=== PATIENT | female | born 1940 | race Caucasian/White ===

== ENCOUNTER → 2024-04-29 | Outpatient (CLI) | payer MEDICARE, BC, SELFPAY ==
[2024-04-29 13:39] LABS: Collection Type, Urine Clean Catch
[2024-04-29 14:53] LABS: Amorphous Crystals,Urine Present (Absent); Bacteria,Urine Rare; Bilirubin,Urine Negative (Negative); Blood,Urine Negative (Negative); Color,Urine Yellow (Lt Yel-Yel); Glucose, Urine Negative (Negative); Ketones,Urine Negative (Negative); Leukocyte Esterase,Urine Negative (Negative); Nitrite,Urine Negative (Negative); Protein,Urine Trace (Neg - Trace); RBC,Urine 2 /hpf (0-3); Specific Gravity,Urine 1.013 (1.001-1.035); Squamous Epithelial Cell,Urine 5 /hpf (0-5); Urobilinogen,Urine Negative mg/dL (0.0-1.0); WBC,Urine 5 /hpf (0-5)
[2024-04-29 14:56] LABS: Clarity,Urine Hazy (Clear/Hazy)
== END | disposition home or self-care (01) ==
LOC: SLDO 13:27
PROVIDERS: PCP Family Medicine; Referring Provider Family Medicine; Visit Provider Family Medicine
DX: N39.0 Urinary tract infection, site not specified (principal)
CPT/HCPCS: 81001; 87077; 87086; 87186

== ENCOUNTER 2024-09-26 20:39 | Emergency (ER) | payer MEDICARE, BC, SELFPAY ==
[2024-09-26 20:45] VITALS: BP 132/85; PULSE 88; RESP 19; TEMP 36.3; O2SAT 92
[2024-09-26 20:48] VITALS: BMI 36.0
--- NOTE | 2024-09-26 21:00 | PD.EDRECHK ---
ED Recheck Abnl Lab Rx-RME/HPI General Chief Complaint: General Adult/Misc Complain Stated Complaint: G-TUBE REPLACEMENT Time Seen by Provider: 09/26/24 20:49 Arrival date/time: 09/26/24 20:39 RME / HPI RME / HPI narrative: Dr. Virgen?s Main ED Evaluation: 84yo female with a history of Alzheimer's dementia BIBA from home presents to the ED for a G-tube replacement. Per EMS, caregivers were repositioning the patient when they noticed the patient's G-tube came out, so she was sent over for evaluation. No fever, dysuria, decreased intake/output reported. NKA. Related Data Home Medications ?Medication ?Instructions ?Recorded ?Confirmed buspirone 15 mg tablet 15 mg PO TID 06/02/18 12/14/23 olanzapine 2.5 mg tablet (Zyprexa) 5 mg feeding tube HS 10/19/18 12/14/23 linaclotide 290 mcg capsule 290 mcg PO QAM 07/31/20 12/14/23 (Linzess) memantine 28 mg capsule 28 mg PO HS 07/31/20 12/14/23 sprinkle,extended release 24hr pyridoxine (vitamin B6) 50 mg 50 mg PO QDAY 07/31/20 12/14/23 capsule (Vitamin B-6) rivastigmine tartrate 3 mg capsule 3 mg PO BID 05/31/21 12/14/23 Bifidobacterium infantis 4 mg 4 mg PO 1130 06/28/21 12/14/23 capsule (Align (B.infantis)) aspirin 81 mg chewable tablet 81 mg feeding tube HS 03/17/22 12/14/23 biotin 10,000 mcg-keratin 100 mg 1 tab PO 1130 03/17/22 12/14/23 tablet (Biotin Plus Keratin) sertraline 20 mg/mL oral 20 mg PO QAM 03/17/22 12/14/23 concentrate acetaminophen 325 mg tablet 650 mg PO QID PRN Fever Or Pain 12/14/23 12/14/23 (Tylenol) melatonin 10 mg tablet 10 mg PO HS 12/14/23 12/14/23 metoclopramide HCl 10 mg tablet 10 mg PO TID 12/14/23 12/14/23 (Reglan) Allergies Allergy/AdvReac Type Severity Reaction Status Date / Time No Known Allergies Allergy Verified 07/15/22 21:46 Review of Systems Review of Systems Systems Reviewed: All systems reviewed, normal except as documented Past Medical History Past Medical History NEUROLOGIC: Positive Neurological Disorders, Dementia and Alzheimer's Disease; Negative Seizures, Peripheral Neuropathy or Traumatic Brain Injury CARDIAC: Positive Atrial Fibrillation and Hypercholesterolemia; Negative Cardiac Disorders, Congestive Heart Failure or Hypertension RESPIRATORY: Negative Chronic Obstructive Pulmonary Disease (COPD) or Asthma GASTROINTESTINAL: Positive Gastrointestinal Disorders (gtube) GENITOURINARY: Negative Genitourinary Disorders or Renal Disease REPRODUCTIVE: Positive Previous Pregnancies MUSCULOSKELETAL: Positive Musculoskeletal Disorders and Arthritis ENDOCRINE: Positive Endocrine Disorders; Negative Diabetes Mellitus Type 1 or Diabetes Mellitus Type 2 HEMATOLOGIC: Negative Sickle Cell Disease PSYCHO/SOCIAL: Positive Depression and Anxiety OTHER HISTORY: Positive Falls, Blood Transfusions and Chicken Pox; Negative Autoimmune Disease or Blood Transfusion Reaction Family History FAMILY HISTORY: Positive Family Psychiatric Problems and Family Cardiac Disorders; Negative Family Respiratory Disorders, Family Gastrointestinal Problems, Family Cancer, Family Surgery or Family Anesthesia Reaction Surgical History SURGICAL: Positive Hysterectomy Social History SMOKING STATUS: Unknown if ever smoked SUBSTANCE USE: does not use ED Exam Narrative Physical exam: GENERAL APPEARANCE: awake, alert, nonverbal, responds to pain, well-developed, well-nourished, no acute distress VITALS: All vitals were reviewed and the pulse ox is 94% on room air, which is normal according to my interpretation. HEENT: Normocephalic, atraumatic; pupils equal, round, reactive to light; EOMI; mucous membranes pink, moist; oropharynx clear NECK: Supple LUNGS: CTABL; no wheezes, no rales, no rhonchi HEART: Regular rate, regular rhythm; normal S1, S2; no murmurs ABDOMEN: non distended; soft, no tenderness, no guarding, no rebound; G-tube stoma at the LUQ that is leaking dark food material without any active dark red bleeding BACK: no CVA tenderness EXTREMITIES: atraumatic; no edema NEUROLOGIC: awake, alert, nonverbal, responds to pain, cranial nerves II-XII grossly intact; no focal sensory or motor deficits PSYCHIATRIC: appropriate mood and affect SKIN: warm, dry, normal color; no rashes Course Quality Measures none Orders Category Date Time Status XR abdomen 1V Stat Exams 09/26/24 21:08 Taken Vital Signs Vital signs: Vital Signs Temperature 97.4 F 09/26/24 20:45 Pulse Rate 88 06/02/25 20:45 Respiratory Rate 19 09/26/24 20:45 Blood Pressure 132/85 H 09/26/24 20:45 Pulse Oximetry (%) 92 L 09/26/24 20:45 Oxygen Delivery Method Room Air 09/26/24 20:45 Procedures -ED Feeding Tube Replacement Type of Tube: gastrostomy Insertion Site Prior to Procedure: GI fluid leaking (site was cleaned prior to amos being inserted) Tube Used for Reinsertion: Amos Danish Tube Size (F): 20 Balloon size (mL): 10 Verification of Placement: gastrografin injection Tube Secured by: tape/dressing Patient Tolerated Procedure: well and no complications Recheck / Abnormal Lab / Rx MDM Narrative MDM Narrative:: Scribe Attestation: 09/26/24 - Jada Ramos am scribing for and in the presence of Dr. Virgen. EMS brought the patient's original G-tube with them, which is a 20 Danish. A 20 Danish amos catheter was inserted - see procedure note. Placement confirmed with gastrografin x-ray. Patient is stable to be discharged home. Patient data External records reviewed:: [facility] previous records (Per chart review, patient was admitted here on 12/14/23 for pneumonia.) Clinical information provided by:: patient Social determinants that could affect healthcare access:: none Patient has the following chronic illnesses:: Alzheimer's dementia, aFib How is presenting disease/condition affected by chronic disease/condition?: uneffected by Evaluation data The following diagnostics were reviewed and interpreted by me:: radiology exam(s) Lab and/or radiology exams considered but not ordered:: none Interpretation Summary: Abdominal x-ray shows Amos catheter in good placement, some opacification of the small bowel, no free air, according to my interpretation. Medications / Prescriptions Medications or Prescriptions considered but not ordered:: none Medication administrations:: none Consultations Consultation(s) initiated? (list below): No Diagnosis Recheck Differential Diagnosis: other (G-tube dislodgement, G-tube malfunction, G-tube blockage) Most likely diagnosis given after review of the tests above:: see clinical impression below Admission Indicated Admission indicated?: not indicated Explain why admission is indicated or not indicated:: Amos catheter was inserted at the G-tube site without any complications. Patient is stable to be discharged. Admission Request Was there a request for admission?: No Disposition Plan Disposition Plan: Discharge Discharge Attestation Discharge Attestation: The patient and all family members were given an opportunity to ask questions and understood the discharge instructions. Discharge instructions specifically effects, indications for sooner follow up or return to the emergency department, and the expected course of current diagnosis. Patient condition: Stable Discharge Plan Plan Patient Disposition: Xfer Skilled Nsg Fac (SNF) Discharge Disposition comment: Stable for discharge to the SNF Patient condition on transfer: Stable Prescriptions/Referrals Prescriptions/Med Rec: No Action buspirone 15 mg Tablet 15 mg PO TID olanzapine [Zyprexa] 2.5 mg tablet 5 mg feeding tube HS Vitamin B-6 50 mg Capsule 50 mg PO QDAY memantine 28 mg capsule,sprinkle,ER 24hr 28 mg PO HS Linzess 290 mcg Capsule 290 mcg PO QAM rivastigmine tartrate 3 mg capsule 3 mg PO BID Align (B.infantis) 4 mg Capsule 4 mg PO 1130 sertraline 20 mg/mL concentrate 20 mg PO QAM Biotin Plus Keratin 10,000-100 mcg-mg Tablet 1 tab PO 1130 aspirin 81 mg tablet,chewable 81 mg feeding tube HS metoclopramide HCl [Reglan] 10 mg Tablet 10 mg PO TID melatonin 10 mg Tablet 10 mg PO HS acetaminophen [Tylenol] 325 mg Tablet 650 mg PO QID PRN (Reason: Fever Or Pain) Referrals: No Primary/Family,Physician [Primary Care Provider] - In 1 week Problem List Clinical Impression: Gastrostomy tube dysfunction Patient/Caregiver Discharge Instructions Discharge Activity: activity as tolerated Diet Instructions: As per usual Education Materials: Bolus Tube Feeding Additional Instructions: Please send Rosanna back to the emergency department if she has any worsening or any further medical problems and we will help her. Otherwise she should follow-up with her primary care doctor within the next several days. Rosanna will need a G-tube placed rather than this Amos catheter. Please contact whoever placed the G-tube initially. Print Language: Pashto Stand Alone Forms: [employer] Award Info., Patient Portal Info Letter
--- NOTE | 2024-09-26 21:08 | XR_ITS ---
Examination: Abdomen AP 2 views Technique: AP portable supine abdomen, 2 views Exam date and time: September 26, 2024 2117 hours INDICATIONS: Gastrostomy tube check FINDINGS: Contrast outlines the stomach duodenal bulb, duodenal sweep, ligament of Treitz and small bowel No abnormal extravasation of contrast depicted IMPRESSION: Gastrostomy tube satisfactory position
[2024-09-26 21:17] VITALS: PULSE 84
--- NOTE | 2024-09-26 21:28 | PC.NURSE ---
Xray being completed.
== END 2024-09-26 21:50 | disposition home or self-care (01) ==
PROVIDERS: Emergency Provider Emergency Medicine
DX: K94.23 Gastrostomy malfunction (principal)
CPT/HCPCS: 43762; 74018; 99283; Q9963